=== PATIENT | male | born 1965 | race Hispanic/Latino ===

== ENCOUNTER 2018-04-29 15:51 | Emergency (ER) | payer MEDICAID ==
[2018-04-29 16:19] VITALS: BP 114/64; PULSE 93; RESP 16; O2SAT 98
[2018-04-29 16:24] VITALS: TEMP 98
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
== END 2018-04-29 19:16 | disposition left against medical advice (07) ==
LOC: H.ER 15:51
DX: S02.32XA Fracture of orbital floor, left side, initial encounter for closed fracture (principal); S02.92XA Unspecified fracture of facial bones, initial encounter for closed fracture; Y04.2XXA Assault by strike against or bumped into by another person, initial encounter